=== PATIENT | female | born 1945 | race Two or more races ===

== ENCOUNTER → 2024-08-01 07:14 | Outpatient (CLI) | payer OTHER ==
[2024-08-01 08:31] LABS: HEMOGLOBIN 13.5 g/dL (12.0-15.00); MEAN CELL VOLUME 90.4 fL (80.00-100.00); MEAN CORPUSCULAR HEMOGLOBIN 30.5 pg (27.00-32.0); MEAN CORPUSCULAR HGB CONC 33.7 g/dl (32.0-36.0); PLATELET COUNT 204 K/uL (150-450); RED BLOOD COUNT 4.43 M/uL (4.00-6.00); RED CELL DISTRIBUTION WIDTH 13.6 % (11.5-14.5)
[2024-08-01 09:31] LABS: % SATURACION 27.8 % (15-50); ALBUMIN 4.2 gm/dL (3.4-5.0); BILIRUBIN TOTAL 0.64 mg/dL (0.3-1.2); CALCIUM 9.6 mg/dL (8.5-10.1); CREATININE SERUM 0.72 mg/dL (0.55-1.02); FERRITIN 34.4 NG/ML (8-252); GFR 78.14; GLOBULINA 3.5 G/DL (2.4-3.5); POTASSIUM 3.79 mEq/L (3.5-5.1); T4 FREE 0.87 NG/ML (0.76-1.46); TOTAL PROTEIN 7.7 gm/dL (6.4-8.2); TSH 4.22 uIU/mL (0.358-3.74)
[2024-08-01 12:02] LABS: FOLIC ACID > 20.00 ng/ml (4.78-20)
[2024-08-01 14:18] LABS: MANUAL PLATELET COUNT 260; PLATELET ESTIMATE NORMAL (NORMAL)
[2024-08-02 09:15] LABS: CA 125 13.6 U/mL (0.0-38.1); CA 15-3 18.7 U/mL (0.0-25.0); CA 19-9 72 U/mL (0-35)
[2024-08-02 15:06] LABS: hgb a 97.5 % (96.4-98.8); hgb a2 2.5 % (1.8-3.2); hgb f 0 % (0.0-2.0); hgb s 0 % (0.0)
[2024-08-03 15:08] LABS: g6pd quant 244 (127-427)
[2024-08-04 13:10] LABS: PARIETAL CELL ANTIBODIES 46.3 Units (0.0-20.0)
== END | disposition home or self-care (01) ==
LOC: LAB 07:14
PROVIDERS: ATTEND Internal Medicine Hematology & Oncology
DX: D72.818 Other decreased white blood cell count (principal); D47.2 Monoclonal gammopathy; J45.998 Other asthma; E03.8 Other specified hypothyroidism; I10 Essential (primary) hypertension; D50.8 Other iron deficiency anemias; R79.9 Abnormal finding of blood chemistry, unspecified; R74.02 Elevation of levels of lactic acid dehydrogenase [LDH]; K76.89 Other specified diseases of liver; D63.8 Anemia in other chronic diseases classified elsewhere; D55.9 Anemia due to enzyme disorder, unspecified; D51.0 Vitamin B12 deficiency anemia due to intrinsic factor deficiency; D51.1 Vitamin B12 deficiency anemia due to selective vitamin B12 malabsorption with proteinuria; E06.3 Autoimmune thyroiditis; C50.919 Malignant neoplasm of unspecified site of unspecified female breast; R97.8 Other abnormal tumor markers; R97.1 Elevated cancer antigen 125 [CA 125]

== ENCOUNTER 2024-09-02 06:27 | Outpatient (CLI) | payer OTHER ==
[2024-09-02 07:46] LABS: CALCIUM 9.3 mg/dL (8.5-10.1); CREATININE SERUM 0.69 mg/dL (0.55-1.02); GFR 82.07; POTASSIUM 4.16 mEq/L (3.5-5.1)
== END 2024-09-02 06:28 | disposition home or self-care (01) ==
LOC: LAB 06:27
PROVIDERS: ATTEND Internal Medicine Hematology & Oncology
DX: C25.9 Malignant neoplasm of pancreas, unspecified (principal); R97.8 Other abnormal tumor markers; I10 Essential (primary) hypertension; D72.818 Other decreased white blood cell count; D47.2 Monoclonal gammopathy; R71.8 Other abnormality of red blood cells; J45.998 Other asthma; E03.8 Other specified hypothyroidism

== ENCOUNTER 2024-09-04 07:14 | Outpatient (CLI) | payer OTHER | END 2024-09-04 07:16 | disposition home or self-care (01) | LOC: TOM 07:14 | PROVIDERS: ATTEND Internal Medicine Hematology & Oncology | DX: D72.818 Other decreased white blood cell count (principal); D47.2 Monoclonal gammopathy; R71.8 Other abnormality of red blood cells; J45.998 Other asthma; E03.8 Other specified hypothyroidism; I10 Essential (primary) hypertension; R97.8 Other abnormal tumor markers | CPT/HCPCS: 71270; 74178; Q9965 ==

== ENCOUNTER 2024-09-16 17:27 | Inpatient (IN) | payer OTHER ==
[~2024-09-16] VITALS: Ht 165.1 cm; Wt 77.1 kg
--- NOTE | 2024-09-16 17:58 | NUR ---
PTE ALERTA Y ORIENTADA X3. REFIERE SER REFERIDA POR DRA.HILDA MILES POR CELLULITIS EN LADO OLGA DEL KORI PTE REFIERE QUE HABLO CON DR. NIDHI MILES
[2024-09-16] MEDS ORDERED: SYNTHROID50 MCG PO (18:03)
[2024-09-16] MEDS ORDERED: MONTELUKAST SOD10 MG PO (18:04)
[2024-09-16] MEDS ORDERED: LOSARTAN POTASS25 MG PO (18:04)
[2024-09-16] MEDS ORDERED: FLONASE16 GM NS (18:04)
[2024-09-16] MEDS ORDERED: LANSOPRAZOLE30 MG PO (18:05)
[2024-09-16] MEDS ORDERED: EZETIMIBE10 MG PO (18:07)
[2024-09-16] MEDS ORDERED: DILTIAZEM ER120 M2 (18:07)
[2024-09-16] MEDS ORDERED: PREDNISONE50 M1 PO (18:08)
[2024-09-16] MEDS ORDERED: PROVENTIL S2 MG/5 ML (18:08)
[2024-09-16] MEDS ORDERED: PIPERACILLIN/TAZOBACTAM SODIUM 3.375 GM VIAL IV ONE ×2 (18:39→18:45)
[2024-09-16] MEDS ORDERED: 0.9 % SODIUM CHLORIDE 1,000 ML IV SCH ×2 (18:45→21:00)
--- NOTE | 2024-09-16 19:12 | NUR ---
SE EDUCA A PTE SOBRE TX MEDICO, SE NORMA MUESTRAS DE LABORATORIO UTILIZANDO MEDIDAS ASEPTICAS. SE COLOCA H/L ALEJANDRO DE EDEMA. SE ADMINISTRAN MEDICAMENTOS PRITI ORDEN MEDICA.
[2024-09-16] MEDS ORDERED: FAMOTIDINE/PF 20 MG in 0.9 % SODIUM CHLORIDE 8 ML IV PUSH ONE (19:30)
[2024-09-16] MEDS ORDERED: ACETAMINOPHEN 500 MG GEL..CAP PO PRN (19:30)
[2024-09-16 19:43] LABS: RED BLOOD COUNT 4.45 M/uL (3.93-5.22)
[2024-09-16 19:44] LABS: HEMATOCRIT 39.8 % (34.1-44.9); HEMOGLOBIN 13.5 g/dL (11.2-15.7); MEAN CORPUSCULAR HEMOGLOBIN 30.3 pg (25.6-32.2); NEUT % 81.3 % (34.0-71.1); PLATELET COUNT 228 K/uL (163-369); RED CELL DISTRIBUTION WIDTH 12.4 % (11.6-14.4)
[2024-09-16 19:45] LABS: BASO % 0.6 % (0.1-1.2); EOS # 0.06 (0.04-0.54); EOS % 0.6 % (0.7-7.0); LYMPH # 0.98 (1.18-3.74); LYMPH % 9.6 % (19.3-53.1); MONO # 0.74 (0.24-0.82); MONO % 7.2 % (4.7-12.5)
[2024-09-16 19:50] LABS: INR 0.99; PROTHROMBIN TIME 10.8 SECONDS (9.0-11.5)
[2024-09-16 19:57] LABS: ALBUMIN 4.4 gm/dL (3.4-5.0); BILIRUBIN TOTAL 0.54 mg/dL (0.3-1.2); CALCIUM 10.1 mg/dL (8.5-10.1); CREATININE SERUM 0.71 mg/dL (0.55-1.02); GFR 79.41; GLOBULINA 4.1 G/DL (2.4-3.5); POTASSIUM 3.47 mEq/L (3.5-5.1); TOTAL PROTEIN 8.5 gm/dL (6.4-8.2)
[2024-09-16 20:05] LABS: PH,URINE 6.5 (5.0-8.0); URINE APPEARANCE Clear; URINE BILIRRUBIN Negative (NEGATIVE); URINE BLOOD Negative; URINE COLOR Yellow; URINE GLUCOSE Negative (NEGATIVE); URINE KETONE Negative (NEGATIVE); URINE LEUKOCYTE Negative; URINE NITRATE Negative; URINE PROTEIN Negative (NEGATIVE); URINE UROBILINOGEN 0.2 E.U./dl
[2024-09-16 20:10] LABS: URINE BACTERIA 4.8 uL (0.0-1933)
[2024-09-16 20:37] LABS: URINE CAST 0.14 uL (0.0-1.40); URINE EPITHELIAL CELLS 0.1 uL (0.0-38.8); URINE WBC 1.1 uL (0.0-23.2)
[2024-09-16] MEDS ORDERED: DOXYCYCLINE HYCLATE 100MG IV SCH (21:14)
[2024-09-16] MEDS ORDERED: CEFTRIAXONE SODIUM 2,000 MG in 0.9 % SODIUM CHLORIDE 100 ML IV SCH (21:14)
[2024-09-16] MEDS ORDERED: LOSARTAN POTASSIUM 25 MG TABLET PO SCH (21:15)
[2024-09-16] MEDS ORDERED: FAMOTIDINE/PF 20 MG in 0.9 % SODIUM CHLORIDE 8 ML IV PUSH SCH (21:15)
[2024-09-16] MEDS ORDERED: ONDANSETRON HCL 4 MG in 0.9 % SODIUM CHLORIDE 50 ML IV PRN (21:15)
[2024-09-17] MEDS ORDERED: ACYCLOVIR SODIUM 500 MG VIAL IV SCH (01:00)
[2024-09-17 04:11] VITALS: BP 144/64; O2SAT 96
[2024-09-17] MEDS ORDERED: LEVOTHYROXINE SODIUM 50 MCG TABLET PO SCH (06:00)
[2024-09-17 08:00] VITALS: BP 138/74; O2SAT 97
[2024-09-17] MEDS ORDERED: POLYVINYL ALCOHOL 15 ML DROPS OP PRN (08:15)
[2024-09-17] MEDS ORDERED: DOXYCYCLINE HYCLATE 100MG IV ONE ×2 (08:20→15:49)
[2024-09-17] MEDS ORDERED: ENOXAPARIN SODIUM 40 MG/0.4 ML SYRINGE SUBCUTANEO SCH (09:00)
[2024-09-17 16:56] VITALS: BP 148/74; O2SAT 96
[2024-09-17] MEDS ORDERED: MONTELUKAST SODIUM 10 MG TABLET PO SCH (17:00)
[2024-09-17] MEDS ORDERED: ACYCLOVIR SODIUM 500 MG VIAL IV NR (19:25)
[2024-09-17] MEDS ORDERED: VANCOMYCIN HCL 1,000 MG VIAL IV SCH (21:00)
[2024-09-18 00:34] VITALS: BP 116/50
[2024-09-18 06:54] LABS: BASO % 1.3 % (0.1-1.2); EOS # 0.17 (0.04-0.54); EOS % 4.5 % (0.7-7.0); HEMATOCRIT 34.3 % (34.1-44.9); HEMOGLOBIN 11.3 g/dL (11.2-15.7); LYMPH # 0.81 (1.18-3.74); LYMPH % 21.6 % (19.3-53.1); MEAN CORPUSCULAR HEMOGLOBIN 29.7 pg (25.6-32.2); NEUT # 2.08 (1.56-6.13); NEUT % 55.6 % (34.0-71.1); PLATELET COUNT 190 K/uL (163-369); RED BLOOD COUNT 3.81 M/uL (3.93-5.22); RED CELL DISTRIBUTION WIDTH 12.4 % (11.6-14.4)
[2024-09-18 07:51] LABS: ALBUMIN 3.2 gm/dL (3.4-5.0); BILIRUBIN TOTAL 0.3 mg/dL (0.3-1.2); CALCIUM 8.6 mg/dL (8.5-10.1); CREATININE SERUM 0.76 mg/dL (0.55-1.02); GFR 73.41; GLOBULINA 2.9 G/DL (2.4-3.5); POTASSIUM 4.46 mEq/L (3.5-5.1); TOTAL PROTEIN 6.1 gm/dL (6.4-8.2)
[2024-09-18 08:00] VITALS: BP 149/73; O2SAT 96
[2024-09-18 08:01] LABS: MONO % 13.3 % (4.7-12.5)
[2024-09-18 16:30] VITALS: BP 144/82; O2SAT 95
[2024-09-18] MEDS ORDERED: ACYCLOVIR SODIUM 7MG/ML REDILUIDO IV SCH (17:00)
[2024-09-19 02:03] VITALS: BP 170/72
[2024-09-19 04:00] VITALS: BP 133/60
[2024-09-19 09:07] VITALS: BP 168/70; O2SAT 98
[2024-09-19] MEDS ORDERED: DIPHENHYDRAMINE HCL 50 MG in 0.9 % SODIUM CHLORIDE 50 ML IV PRN (13:00)
[2024-09-19 16:36] VITALS: BP 146/67; O2SAT 97
[2024-09-19] MEDS ORDERED: IPRATROPIUM/ALBUTEROL SULFATE 3 ML AMPUL.NEB IH SCH (21:00)
[2024-09-19] MEDS ORDERED: FAMOtidine 20 MG TABLET PO SCH (21:00)
[2024-09-20 02:38] VITALS: BP 147/76; O2SAT 97
[2024-09-20 08:09] LABS: ALBUMIN 3.3 gm/dL (3.4-5.0); BILIRUBIN TOTAL 0.32 mg/dL (0.3-1.2); CALCIUM 8.6 mg/dL (8.5-10.1); CREATININE SERUM 0.58 mg/dL (0.55-1.02); GFR 100.28; GLOBULINA 2.8 G/DL (2.4-3.5); MAGNESIUM 2.1 mg/dL (1.8-2.4); PHOSPHOROUS 3.2 mg/dL (2.5-4.9); POTASSIUM 4.09 mEq/L (3.5-5.1); TOTAL PROTEIN 6.1 gm/dL (6.4-8.2)
[2024-09-20 08:15] LABS: BASO % 1.1 % (0.1-1.2); EOS % 5.7 % (0.7-7.0); HEMATOCRIT 33.3 % (34.1-44.9); HEMOGLOBIN 11.3 g/dL (11.2-15.7); LYMPH # 0.87 (1.18-3.74); MEAN CORPUSCULAR HEMOGLOBIN 30.3 pg (25.6-32.2); NEUT % 51.8 % (34.0-71.1); PLATELET COUNT 219 K/uL (163-369); RED BLOOD COUNT 3.73 M/uL (3.93-5.22); RED CELL DISTRIBUTION WIDTH 12.3 % (11.6-14.4)
[2024-09-20 08:18] LABS: MONO % 14.4 % (4.7-12.5)
[2024-09-20 08:20] LABS: C-REACTIVE PROTEIN 0.75 MG/DL (0.00-0.29)
[2024-09-20 08:39] VITALS: BP 155/76
[2024-09-20 16:44] VITALS: BP 138/63; O2SAT 96
[2024-09-21 01:47] VITALS: BP 144/69; O2SAT 97
[2024-09-21 08:20] VITALS: BP 131/66
[2024-09-21 16:22] VITALS: BP 146/68; O2SAT 97
[2024-09-22 01:29] VITALS: BP 148/77; O2SAT 96
[2024-09-22 07:56] VITALS: BP 148/78
== END 2024-09-22 13:04 | disposition home or self-care (01) | DRG 603 ==
LOC: ER 17:47 → MEDI 21:24
PROVIDERS: Emergency Medicine; Internal Medicine; Internal Medicine Infectious Disease; ADMIT Internal Medicine; ATTEND Internal Medicine
PROC: BN25ZZZ Computerized Tomography (CT Scan) of Facial Bones (ICD-10-PCS; principal; 2024-09-16)
PROC: 8E0ZXY6 Isolation (ICD-10-PCS; 2024-09-17)
DX: L03.211 Cellulitis of face (principal); B02.9 Zoster without complications; R53.83 Other fatigue; I10 Essential (primary) hypertension; E11.9 Type 2 diabetes mellitus without complications; E03.9 Hypothyroidism, unspecified